=== PATIENT | male | born 1985 | race Caucasian/White ===

== ENCOUNTER 2022-02-02 23:03 | Emergency (ER) | payer BC ==
[2022-02-03] MEDS ORDERED: Acetaminophen 325 MG Tab PO ONE (00:27)
[2022-02-03] MEDS ORDERED: Cephalexin 500 MG Cap PO ONE (00:32)
[2022-02-03] MEDS ORDERED: Lidocaine 1% 10 ML MDV INJECT ONE (00:32)
== END 2022-02-03 04:30 | disposition home or self-care (01) ==
LOC: JD.ED 23:03
DX: S62.631A Displaced fracture of distal phalanx of left index finger, initial encounter for closed fracture (principal); W22.09XA Striking against other stationary object, initial encounter
CPT/HCPCS: 12001; 73140; 99283; A9270